=== PATIENT | male | born 1930 | race Caucasian/White ===

== ENCOUNTER 2016-07-31 16:54 | Observation (INO) | payer MEDICARE, OTHER ==
[2016-07-31] MEDS ORDERED: ONDANSETRON HCL/PF 2 MG/ML VIAL IV ONE (17:40)
[2016-07-31 17:45] LABS: Hematocrit 44.9 % (42.0-52.0); Hemoglobin 15.1 gm/dL (13.5-18.0); Mean Corpuscular Hemoglobin 32.6 pg (27-31); Mean Corpuscular Hgb Conc 33.6 g/dl (32-36); Mean Platelet Volume 10.2 fl (6.0-9.5); Neutrophil # 5.7 K/mm3 (1.3-6.0); Neutrophil % 76.6 % (42-75.0); Platelet Count 178 K/mm3 (150-450); Red Blood Count 4.63 M/mm3 (4.7-6.0); Red Cell Distribution Width 13.2 % (11.5-14.0); White Blood Count 7.5 K/mm3 (4.0-10.5)
[2016-07-31] MEDS ORDERED: ONDANSETRON HCL/PF 2 MG/ML VIAL ONE (17:56)
[2016-07-31 17:59] LABS: Albumin * 3.6 gm/dl (3.4-5.0); Anion Gap 12.7 mmol/L (6.8-13.8); BUN/Creatinine Ratio 11.7 (9.0-21.6); Bilirubin, Total 0.7 mg/dL (0.0-1.1); Ca. Corrected For Albumin 8.8 mg/dL (8.4-10.2); Calcium * 8.8 mg/dL (7.9-10.9); Carbon Dioxide 25.6 mmol/L (24-32.6); Potassium 4.3 mmol/L (3.4-4.6); Total Protein 7.6 gm/dL (6.2-8.2)
[2016-07-31] MEDS: NORMAL SALINE 1,000 ML IV PRN ×2 (18:04→22:45)
[2016-07-31] MEDS ORDERED: MORPHINE SULFATE 2 MG/ML DISP.SYRIN IV ONE (18:05)
[2016-07-31] MEDS ORDERED: MORPHINE SULFATE 2 MG/ML DISP.SYRIN ONE (18:07)
[2016-07-31 19:00] LABS: Urine Bilirubin Negative (NEGATIVE); Urine Blood Negative /ul (NEGATIVE); Urine Ketone Negative (NEGATIVE); Urine Nitrite Negative (NEGATIVE); Urine Protein Negative (NEGATIVE); Urine Specific Gravity <=1.005 SP.GR. (1.005-1.030); Urine Urobilinogen Normal (NORMAL); Urine pH 6.5 pH (5.0-7.0)
[2016-07-31 19:12] LABS: Urine Appearance Clear; Urine Bacteria None Seen; Urine Color Yellow; Urine RBC None Seen /hpf (0-5); Urine WBC 0-5 /hpf (0-5)
--- NOTE | 2016-07-31 19:30 | ERNOTE ---
Abdominal HPI - Narrative Date of Service: 07/31/16 - General Chief Complaint: Abdominal Pain Time Seen by Provider: 07/31/16 17:17 Source: patient Exam Limitations: no limitations - Immun/Allergies/Home Medications Immunizatons: IMMUNIZATION HX History of Influenza Vaccine No Hx Pneumococcal Vaccination No Allergies/Adverse Reactions: Allergies aspirin Adverse Reaction (Mild, Verified 07/31/16 17:10) GI UPSET Home Medications: HOME MEDICATIONS Calcium Carbonate [Calcium] 1,500 mg PO BID 10/20/13 [Last Taken Unknown] Gluc 2Kcl/Chondr/Mckinley Hy/Hy AC [Glucosamine & Chondroitin Cap] 1 each PO BID [Last Taken Unknown] Levothyroxine Sodium [Synthroid] 50 mcg PO DAILY 10/20/13 [Last Taken Unknown] Lutein 20 mg PO DAILY 10/20/13 [Last Taken Unknown] [place]-3 Fatty Acids [Fish Oil] 500 mg PO DAILY 10/20/13 [Last Taken Unknown] Tamsulosin HCl [Flomax] 0.4 mg PO Q2D 10/20/13 [Last Taken Unknown] Ascorbic Acid [Vitamin C] 1,000 mg PO DAILY 04/06/15 [Last Taken Unknown] Cholecalciferol (Vitamin D3) [Vitamin D] 1,000 unit PO DAILY 04/06/15 [Last Taken Unknown] Ubidecarenone [Co Q-10] 100 mg PO DAILY 04/10/15 [Last Taken Unknown] Dgl 06/12/15 [Last Taken Unknown] Ana Root 06/12/15 [Last Taken Unknown] Krill Oil 06/12/15 [Last Taken Unknown] Pycnogenol 06/12/15 [Last Taken Unknown] Resveratrol 06/12/15 [Last Taken Unknown] Vitamin B12 06/12/15 [Last Taken Unknown] - History of Present Illness Narrative: Patient presents with abdominal pain. He relates that he has been having pain and distention for the last week but it has been much worse over the last 24 hours. no fever. He relates normal, non-bloody bowel movements but has been vomiting. No fever. No CP or SOB. Has not seen anyone else for this. nothing clearly makes it better or worse. Pain can be severe, moderate now. Timing: intermittent Quality: fullness Activities at Onset: none Modifying Factors - (Improves): Present: other - none Modifying Factors - (Worsens): Present: movement Associated Symptoms: Present: heartburn, nausea, vomiting. Absent: chest pain, diaphoresis, diarrhea-gross blood, diarrhea-mucous, fever/chills, shortness of breath Prior Abdominal Problems: Present: other - multiple intra-abdominal surgeries Prior Treatment: Absent: recently seen Review of Systems - Review of Systems Constitutional: Absent: fever Respiratory: Absent: shortness of breath Cardiology: Absent: chest pain Gastrointestinal/Abdominal: Present: vomiting Genitourinary: Absent: dysuria All Other Systems: All systems neg except as marked - Patient's Past Medical History Patient History - Medical: Cataracts, GERD, Osteoarthritis, Other Patient History - Cancer: No Hx of Cancer Patient History - Surgical Procedures: Colonoscopy, EGD, Other - Social History Living Situations: home Alcohol Use: none Drug Use: none Physical Exam - Physical Exam General Appearance: Present: alert, mild distress, other - mild distress d/t pain Eye Exam: Normal inspection: bilateral, PERRL: bilateral Ears, Nose, Throat: Present: normal ENT inspection Neck: Present: normal inspection Respiratory: Present: no respiratory distress, normal breath sounds, no accessory muscle use, lungs clear Cardiovascular/Chest: Present: regular rate, rhythm, normal peripheral pulses Gastrointestinal/Abdominal: Present: other - decreased bowel sounds. Diffuse tendenress. hypertympany right mid-abdomen. Most tenderness right mid abdomen. no clear peritoneal signs Back Exam: Absent: CVA tenderness (R), CVA tenderness (L) Extremity Exam: Absent: calf tenderness Neurological Exam: Present: other - no acute focal motor deficits Skin Exam: Absent: skin rash ED Progress - Results and Orders Patient's Lab Results:: I have reviewed the patient's lab results. - Vital Signs Patient's Vital Signs:: I have reviewed the patient's vital signs. Vital Signs: Vital Signs 07/31/16 07/31/16 17:02 18:11 Temperature 36.7 C Pulse Rate 67 65 Respiratory 12 18 Rate Blood Pressure 148/76 136/70 O2 Sat by Pulse 95 97 Oximetry - CT/Ultrasound CT/Ultrasound Narrative: I reviewed the radiology interpretation of the CT scan - Progress/Reassessment Chief Complaint: Abdominal Pain Progress:: Unchanged Progress Note-Subjective: 07/31/16 19:28 Patient having intermittent severe abdominal pain, he will scream out at times. This will then get better. This has been recurrent. he does not feel he can go home with this. I spoke to the Hospitalist who will see the patient in the ED and assess him for admission. Departure - Departure Clinical Impression: Abdominal pain Disposition: [facility] Condition: Stable
[2016-07-31] MEDS ORDERED: ONDANSETRON HCL/PF 2 MG/ML VIAL IV PRN (20:04)
[2016-07-31] MEDS ORDERED: HYDROmorphone HCL 1 MG/ML DISP.SYRIN IV PRN (20:08)
--- NOTE | 2016-07-31 20:11 | HP ---
Chief Complaint - Chief Complaint Date of Service: 07/31/16 Time of Service: 20:10 Chief Complaint: "Feels bloated, nausea/vomiting, abdominal pain. ". Source- Pt ; reliable, Pt's daughter Sara, ER provider report. History of Present Illness: Mr. Phillips is a 86-yr-old WM pt of Dr. Elton Morrissey with a PMH of: Loco 's Esophagus, BPH, GERD, Hiatal Hernia, Hypothyroidism & Osteoathritis. Pt states that he begun feeling bloated on Friday07/26/16. He had acid regurgitation and heart burn along with the bloating. He states that he wanted to come to the ER but since he had an upcoming appt on Friday07/30/[address] Morrissey, he decided to wait until then. In the meantime, he decided to treat his symptoms with OTC Antiacid ( Gaviscon). Today, he states that his symptoms got worse. He felt like a " bloated toad" and whenever he ate any food , he would vomit or regurgitate the stomach contents an 1-2 hours later. He also developed abdominal pain. His daughter went to check on him this evening and found him to be in a lot of Abdominal discomfort, and so she chose to bring him to the [facility] ER. During evaluation at the ED, the hematology and electrolytes laboratory studies were unremarkable. The CT of the Abdomen obtained also did not have any acute findings. Pt will be admitted under observation status for supportive cares of abd pain/distention with: IVF hydration, antiemetics, bowel rest, and Pain mgt. - Patient's Past Medical History Patient History - Medical: Cataracts, GERD, Hypothyroidism, Osteoarthritis, Other - Pneumonia, Otoniel's Esophagua, Hiatal Hernia Patient History - Cancer: No Hx of Cancer Patient History - Surgical Procedures: Colonoscopy, EGD, Pacemaker, Other - Samina fundolopian. - Family History Father Family History - Medical: , Alzheimer's Disease Mother Family History - Medical: , No pertinent hx - Social History Living Situations: home Smoking Status: Former smoker Alcohol Use: none Drug Use: none - Immunizations Immunizations Up to Date: Yes Hx Pneumococcal Vaccination: Yes History of Influenza Vaccine: Yes Review Of Systems (GEN) - Review of Systems Generalized/Overall Review: Absent: Chills, Fever, Diaphoresis EENTM: Absent: Eye Pain, Blurred Vision, Double Vision Respiratory: Present: Shortness of Breath. Absent: Cough Cardiac: Absent: Chest Pain, Edema, Palpitations Abdominal: Present: Nausea, Vomiting, Abdominal Pain. Absent: Constipation, Diarrhea, Melena, Bright blood from rectum Genitourinary: Absent: Burning, Itching, Urgency, Hematuria Musculoskeletal: Absent: Joint Pain, Back Pain Neurological: Present: Tremors, Weakness. Absent: Headache, Anxiety, Emotional Problems Skin: Absent: Dryness, Lesions Endocrine: Present: Intolerance to Cold, Intolerance to Heat, Excessive Sweating , Increased Hunger, Increased Thirst Allergies/Adverse Reactions: Allergies Allergy/AdvReac Type Severity Reaction Status Date / Time aspirin AdvReac Mild GI UPSET Verified 07/31/16 17:10 Home Medications: HOME MEDICATIONS Calcium Carbonate [Calcium] 1,500 mg PO BID 10/20/13 [Last Taken Unknown] Gluc 2Kcl/Chondr/Mckinley Hy/Hy AC [Glucosamine & Chondroitin Cap] 1 each PO BID [Last Taken Unknown] Levothyroxine Sodium [Synthroid] 50 mcg PO DAILY 10/20/13 [Last Taken Unknown] Lutein 20 mg PO DAILY 10/20/13 [Last Taken Unknown] Crawley-3 Fatty Acids [Fish Oil] 500 mg PO DAILY 10/20/13 [Last Taken Unknown] Tamsulosin HCl [Flomax] 0.4 mg PO Q2D 10/20/13 [Last Taken Unknown] Ascorbic Acid [Vitamin C] 1,000 mg PO DAILY 04/06/15 [Last Taken Unknown] Cholecalciferol (Vitamin D3) [Vitamin D] 1,000 unit PO DAILY 04/06/15 [Last Taken Unknown] Ubidecarenone [Co Q-10] 100 mg PO DAILY 04/10/15 [Last Taken Unknown] Ana Root 2 dose PO DAILY 06/12/15 [Last Taken Unknown] Vitamin B12 1 tab PO DAILY 06/12/15 [Last Taken Unknown] Exam - Exam Vital Signs: Vital Signs - Last Taken Temp 36.7 C 07/31/16 19:25 Pulse 66 07/31/16 19:25 Resp 18 07/31/16 18:11 BP 124/67 07/31/16 19:25 Pulse Ox 98 07/31/16 19:25 Constitutional: Present: Alert, Oriented x3, Mild distress, Elderly ENT Exam: Present: normal ENT inspection, hearing grossly normal. Absent: nasal congestion, nasal drainage Eye Exam: bilateral eye: normal inspection, PERRL Neck: Present: full range of motion, supple, normal inspection Back Exam: Present: no CVA tenderness Breasts: Present: Exam deferred Respiratory: Present: lungs clear, no accessory muscle use, No wheezing Cardiovascular/Chest: Present: regular rate, rhythm, no chest tenderness, no murmur Abdomen: Present: firm, other - Tympanitic Abdomen., distended /Rectal: Present: Exam deferred Extremity: Present: non-tender, normal inspection, no pedal edema Skin Exam: Present: warm/dry Lymphatic: Present: no adenopathy Neurologic: Present: no motor/sensory deficits, alert, oriented x 3. Absent: dizzy/light-headedness Appearance: Present: appropriate appearance, appropriate insight Eye contact: Present: cooperative, good eye contact, normal speech Thoughts: Present: normal thought pattern, no apparent hallucination Diagnostic Studies: Laboratory Results WBC 7.5 K/mm3 (4.0-10.5) 07/31/16 17:41 RBC 4.63 M/mm3 (4.7-6.0) L 07/31/16 17:41 Hgb 15.1 gm/dL (13.5-18.0) 07/31/16 17:41 Hct 44.9 % (42.0-52.0) 07/31/16 17:41 MCV 97.0 fl (78-100) 07/31/16 17:41 MCH 32.6 pg (27-31) H 07/31/16 17:41 MCHC 33.6 g/dl (32-36) 07/31/16 17:41 RDW 13.2 % (11.5-14.0) 07/31/16 17:41 Plt Count 178 K/mm3 (150-450) 07/31/16 17:41 MPV 10.2 fl (6.0-9.5) H 07/31/16 17:41 Immature Gran % (Auto) 0.10 % (0.001-0.429) 07/31/16 17:41 Immature Gran # (Auto) 0.01 K/mm3 (0.000-0.0310) 07/31/16 17:41 Neutrophils % 76.6 % (42-75.0) H 07/31/16 17:41 Lymphocytes % 12.2 % (20-51) L 07/31/16 17:41 Monocytes % 8.6 % (0.0-9) 07/31/16 17:41 Eosinophils % 2.0 % (0.0-3.0) 07/31/16 17:41 Basophils % 0.5 % (0.0-1.0) 07/31/16 17:41 Nucleated RBC % 0.0 k/mm3 (0-1) 07/31/16 17:41 Neutrophils # 5.7 K/mm3 (1.3-6.0) 07/31/16 17:41 Lymphocytes # 0.9 k/mm3 (1.5-3.5) L 07/31/16 17:41 Monocytes # 0.6 k/mm3 (0.0-1.0) 07/31/16 17:41 Eosinophils # 0.2 k/mm3 (0.0-0.7) 07/31/16 17:41 Absolute Basophils 0.0 k/mm3 (0.0-0.1) 07/31/16 17:41 Sodium 139 mmol/L (132-142) 07/31/16 17:41 Plasma Sodium 139 mmol/L (130-142) 07/31/16 17:41 Potassium 4.3 mmol/L (3.4-4.6) 07/31/16 17:41 Chloride 105 mmol/L (97-106) 07/31/16 17:41 Carbon Dioxide 25.6 mmol/L (24-32.6) 07/31/16 17:41 Anion Gap 12.7 mmol/L (6.8-13.8) 07/31/16 17:41 BUN 14 mg/dL (6-23) 07/31/16 17:41 Creatinine 1.20 mg/dL (0.4-1.4) 07/31/16 17:41 Est GFR (Non-Af Amer) 61 mL/min (60-130) 07/31/16 17:41 BUN/Creatinine Ratio 11.7 (9.0-21.6) 07/31/16 17:41 Random Glucose 110 mg/dL (70-110) 07/31/16 17:41 Lactic Acid, Venous 1.7 mmol/L (0.4-2.0) 07/31/16 17:41 Calcium 8.8 mg/dL (7.9-10.9) 07/31/16 17:41 Calcium Adj for Albumin 8.8 mg/dL (8.4-10.2) 07/31/16 17:41 Total Bilirubin 0.7 mg/dL (0.0-1.1) 07/31/16 17:41 AST 47 U/L (0-48) 07/31/16 17:41 ALT 55 U/L (19-67) 07/31/16 17:41 Alkaline Phosphatase 72 U/L (50-170) 07/31/16 17:41 Total Protein 7.6 gm/dL (6.2-8.2) 07/31/16 17:41 Albumin 3.6 gm/dl (3.4-5.0) 07/31/16 17:41 Lipase 98 U/L (73-393) 07/31/16 17:41 Urine Color Yellow 07/31/16 18:50 Urine Appearance Clear 07/31/16 18:50 Urine pH 6.5 pH (5.0-7.0) 07/31/16 18:50 Ur Specific [place] <=1.005 SP.GR. (1.005-1.030) 07/31/16 18:50 Urine Protein Negative mg/dL (NEGATIVE) 07/31/16 18:50 Urine Glucose (UA) Negative mg/dL (NEGATIVE) 07/31/16 18:50 Urine Ketones Negative mg/dL (NEGATIVE) 07/31/16 18:50 Urine Blood Negative /ul (NEGATIVE) 07/31/16 18:50 Urine Nitrate Negative (NEGATIVE) 07/31/16 18:50 Urine Bilirubin Negative mg/dl (NEGATIVE) 07/31/16 18:50 Urine Urobilinogen Normal EU/dl (NORMAL) 07/31/16 18:50 Ur Leukocyte Esterase Negative /ul (NEGATIVE) 07/31/16 18:50 Urine RBC None seen /hpf (0-5) 07/31/16 18:50 Urine WBC 0-5 /hpf (0-5) 07/31/16 18:50 Ur Epithelial Cells 0-5 /hpf (0-5) 07/31/16 18:50 Urine Bacteria None seen (NONE) 07/31/16 18:50 Urine Culture Comments No culture indicated 07/31/16 18:50 Assessment/Plan - Assessment/Plan (1) Abdominal distention Assessment: The CT of the abdomen showed partially distended stomach, otherwise there were no acute findings. However, the CT was done without oral contrast and therefore evaluation of the bowel may have been limited. Physical examination reveals tympanitic abdomen, without any tenderness. The enlargement of the abdomen is likely a result of gas vs solid or fluid, from swallowed air due to regurgitation/vomiting. Can consider NG tube for bowel decompression, however, without signs of SBO on CT and no vomiting, it might be best to wait and see if the distention will resolves on its own. Will admit for supportive cares, IVF hydration, Antiemetics, Keep NPO & Pain mgt. Alternatively, the CT of the Abdomen can be repeated with contrast if the abd distention does not improve. Consult surgery due to pt's prior history of gastric outlet obstruction with required dilatation. Monitor closely for SBO. Problem: Acute (2) Barretts esophagus Assessment: Will start on PPI for to control the GERD symptoms. Problem: Chronic (3) GERD (gastroesophageal reflux disease) Problem: Chronic
[2016-07-31] MEDS: PANTOPRAZOLE SODIUM 80 MG in NORMAL SALINE 100 ML IV SCH (22:42)
[2016-08-01] MEDS ORDERED: TAMSULOSIN HCL 0.4 MG CAP.SR.24H PO SCH ×3 (01:15→21:00)
[2016-08-01 05:47] LABS: Hematocrit 40.2 % (42.0-52.0); Hemoglobin 13.4 gm/dL (13.5-18.0); Mean Cell Volume 97.6 fl (78-100); Mean Corpuscular Hemoglobin 32.5 pg (27-31); Mean Corpuscular Hgb Conc 33.3 g/dl (32-36); Mean Platelet Volume 10.7 fl (6.0-9.5); Neutrophil # 5.1 K/mm3 (1.3-6.0); Neutrophil % 70.8 % (42-75.0); Platelet Count 150 K/mm3 (150-450); Red Blood Count 4.12 M/mm3 (4.7-6.0); Red Cell Distribution Width 13.4 % (11.5-14.0); White Blood Count 7.1 K/mm3 (4.0-10.5)
[2016-08-01 05:56] LABS: Anion Gap 13.1 mmol/L (6.8-13.8); BUN/Creatinine Ratio 12.1 (9.0-21.6); Calcium * 7.9 mg/dL (7.9-10.9); Carbon Dioxide 23.1 mmol/L (24-32.6); Estimated Creat Clear 43.4; Potassium 4.2 mmol/L (3.4-4.6)
[2016-08-01] MEDS: NORMAL SALINE 1,000 ML IV PRN ×2 (06:52→15:33)
[2016-08-01] MEDS: LEVOTHYROXINE SODIUM 50 MCG TABLET PO SCH (06:55)
--- NOTE | 2016-08-01 08:33 | PN ---
Subjective - Date and Time Seen Date: 08/01/16 Time: 08:24 Subjective Narrative: Feels a little bit better this mornug. He does complain that whenever he eats , he will feel something is stuck in his stomach and he starts regurgitating it and get nauseous and at times vomits. Objective - Review of Systems Generalized/Overall Review: Denies: Chills, Fever EENTM: Reports: No Symptoms Reported Respiratory: Denies: Cough, Shortness of Breath Cardiac: Denies: Chest Pain, Palpitations Abdominal: Reports: Nausea, Vomiting, Abdominal Pain Genitourinary Symptoms: Denies: Urgency, Frequency Musculoskeletal Complaints: Reports: Joint Pain - Vitals Vitals: Last Vital Signs Temp 37 C 08/01/16 07:56 Pulse 66 08/01/16 07:56 Resp 18 08/01/16 07:56 BP 123/69 08/01/16 07:56 Pulse Ox 99 08/01/16 07:56 - Abnormal Lab Findings Abnormal Lab Findings: Abnormal Lab Results 08/01/16 08/01/16 Range/Units 05:07 05:07 RBC 4.12 L (4.7-6.0) M/mm3 Hgb 13.4 L (13.5-18.0) gm/dL Hct 40.2 L (42.0-52.0) % MCH 32.5 H (27-31) pg MPV 10.7 H (6.0-9.5) fl Lymphocytes % 16.7 L (20-51) % Monocytes % 10.0 H (0.0-9) % Lymphocytes # 1.2 L (1.5-3.5) k/mm3 Chloride 110 H (97-106) mmol/L Carbon Dioxide 23.1 L (24-32.6) mmol/L - Exam Constitutional: Present: Alert, Cooperative ENT Exam: Present: hearing grossly normal Neck: Present: supple Breasts: Present: Exam deferred Respiratory: Present: decreased breath sounds, No rales, No wheezing Cardiovascular/Chest: Present: regular rate, rhythm, no JVD, no murmur Abdomen: Present: no rebound tenderness, firm, other - decreased bowel sounds, distended Extremity: Present: no pedal edema, no calf tenderness Assessment/Plan - Problems/Diagnosis (1) Abdominal distention Problem: Acute Narrative: improved (2) Abdominal pain Problem: Acute Qualifiers: Abdominal location: generalized Qualified Code(s): R10.84 - Generalized abdominal pain Narrative: controlled (3) Barretts esophagus Problem: Chronic Narrative: has been refusing PPI (4) GERD (gastroesophageal reflux disease) Problem: Chronic Narrative: has been refusing PPI (5) Nausea & vomiting Problem: Acute Qualifiers: Vomiting type: unspecified Vomiting Intractability: non-intractable Qualified Code(s): R11.2 - Nausea with vomiting, unspecified Narrative: history of Barrets, GERD, Hiatal hernia, Samina- r/o esophageal stricture ? r/o gastric outlet obstruction? will get Dr. Tolbert for possible EGD- diagnostic/ therapeutic.
[2016-08-01] MEDS: CALCIUM CARBONATE/VITAMIN D3 1 TAB TABLET PO SCH ×2 (08:55→20:02)
[2016-08-01] MEDS ORDERED: ASCORBIC ACID 500 MG TABLET PO SCH (09:00)
[2016-08-01] MEDS ORDERED: CYANOCOBALAMIN 1,000 MCG TABLET PO SCH (09:00)
[2016-08-01] MEDS ORDERED: FISH OIL 500 MG PO SCH (09:00)
[2016-08-01] MEDS ORDERED: Co Q-10 100 MG PO SCH (09:00)
[2016-08-01] MEDS ORDERED: CHOLECALCIFEROL 1,000 UNIT CAPSULE PO SCH (09:00)
[2016-08-01] MEDS ORDERED: NORMAL SALINE 1,000 ML IV ONE (19:00)
[2016-08-01] MEDS: PANTOPRAZOLE SODIUM 80 MG in NORMAL SALINE 100 ML IV SCH (19:38)
--- NOTE | 2016-08-01 19:58 | OR ---
Operative Report - Dictated Report Narrative: Operative Report Date of operation: 08/01/2016 Preoperative diagnosis: Gastric outlet obstruction Postoperative diagnosis: Severe esophagitis. Severe gastritis (pathology and CLOtest pending) Operation: EGD with biopsies Surgeon: Dr Tolbert Anesthesia: JOSE MARIA ELLISON CRNA Indications for procedure: The patient is an 86-year-old male who is status post Samina fundoplication with previous gastric operation including pyloroplasty for ulcer disease. He has had a previous EGD here with balloon dilation of the pylorus in April 2015. He is also had an EGD last fall at [facility] (records not available). He has had progressive postprandial abdominal distention and pain with vomiting. Findings: Severe esophagitis with possible Loco's changes. Surgical changes to the stomach compatible with Samina fundoplication and possible pyloroplasty. Enterogastric bile reflux and retained food material indicating gastroparesis. No gastric outlet obstruction. Normal appearing duodenum. Narrative of procedure: The patient was identified preoperatively, and prior to the administration of anesthetic a multidisciplinary timeout was observed With the patient in the recumbent position, a bite-block was placed, intravenous sedation was administered, and the patient's eyes covered with a towel. The flexible fiberoptic gastroscope was advanced into the posterior pharynx which appeared normal. There were a large amount of pooled secretions which were suctioned. The supraglottic larynx appeared normal. The cords appeared normal, moved well, and opposed in the midline. The scope was advanced under direct vision into the proximal esophagus which appeared normal. The proximal one third of the esophagus appeared freely distensible with normal mucosa. The distal two thirds of the esophagus were severely inflamed with friability and possible Loco's changes. There were islands of mucosa. The scope was advanced into the stomach which was insufflated with air. There was some retained solid food material in the proximal stomach in the area of what appeared to be a slipped Samina wrap. There was inflammation of the stomach with enterogastric bile reflux which was carefully suctioned. The outlet of the stomach appeared patent. The scope was advanced into the horizontal portion of the duodenum which appeared normal, specifically the villous architecture appeared well preserved and clear bile was present. The scope was slowly withdrawn through the area of the gastric outlet with confirmation that no active ulcer was present. The scope was withdrawn into the stomach and medical field representative biopsies of gastric mucosa obtained for CLOtest and pathology. The biopsy sites were seen to be hemostatic. The insufflated air was removed, the scope withdrawn into the distal esophagus which was biopsied. The biopsy sites were seen to be hemostatic. The scope was then withdrawn from the patient, and the procedure terminated. The patient tolerated the anesthetic and procedure well without complication and was transferred back to the awake and in stable condition. RECOMMENDATION: The patient may begin a clear liquid diet with ensure supplement. Liquid Carafate PO QID will be added. Strong consideration should be given to discontinuing nonessential and possibly mucosal irritating medications/vitamins. There is an option that he can be maintained on by mouth liquid supplements, with the option for a percutaneous gastrojejunostomy tube to bypass the stomach completely should that not proved sufficient. Reviewed and electronically signed
[2016-08-01] MEDS: SUCRALFATE 1 G/10 ML UDC PO SCH (20:04)
[2016-08-02] MEDS: NORMAL SALINE 1,000 ML IV PRN (00:05)
[2016-08-02] MEDS: LEVOTHYROXINE SODIUM 50 MCG TABLET PO SCH (06:34)
[2016-08-02] MEDS: SUCRALFATE 1 G/10 ML UDC PO SCH (06:34)
--- NOTE | 2016-08-02 08:26 | PN ---
Progess Note - Interim Narrative: 08/02/16 08:23 Dr. Tolbert is going to consult Lani for special liquid diet fore 4-6 weeks. He recommends continuing carafate and PPI. The patient is still hesitant to start PPI. I told him there are other PPI than omeprazole as he seems to think that is waht started all this. Possible discharge today.
[2016-08-02 11:21] VITALS: BP 126/56
--- NOTE | 2016-08-02 11:21 | DS ---
(1) Abdominal distention Problem: Acute (2) Abdominal pain Problem: Resolved Qualifiers: Abdominal location: generalized Qualified Code(s): R10.84 - Generalized abdominal pain (3) Barretts esophagus Problem: Chronic Qualifiers: Loco's esophagus type: without dysplasia Qualified Code(s): K22.70 - Loco's esophagus without dysplasia (4) GERD (gastroesophageal reflux disease) Problem: Chronic Qualifiers: Esophagitis presence: with esophagitis Qualified Code(s): K21.0 - Gastro- esophageal reflux disease with esophagitis (5) Nausea & vomiting Problem: Resolved Qualifiers: Vomiting type: unspecified Vomiting Intractability: non-intractable Qualified Code(s): R11.2 - Nausea with vomiting, unspecified Description of Stay: Shabbir Phillips, is a 86-yr-old WM with a PMH of: Loco's Esophagus, BPH, GERD , Hiatal Hernia, Hypothyroidism & Osteoathritis who was admitted on 07/31/2016 for N/V/abdominal pain. He begun feeling bloated on Friday07/26/16. He had acid regurgitation and heart burn along with the bloating. He states that he wanted to come to the ER but since he had an upcoming appt on Friday07/30/[address] Morrissey, he decided to wait until then. In the meantime, he decided to treat his symptoms with OTC Antiacid ( Gaviscon). On the morning of admission , his symptoms got worse. He felt like a " bloated toad" and whenever he ate any food, he would vomit or regurgitate the stomach contents an 1-2 hours later. He also developed abdominal pain. His daughter went to check on him on the night of admission and found him to be in a lot of abdominal discomfort, and so she chose to bring him to the [facility] ER. During evaluation at the ED, the hematology and electrolytes laboratory studies were unremarkable. The CT of the Abdomen obtained also did not have any acute findings. Pt was admitted and got IVF hydration, antiemetics, bowel rest, and Pain mgt. Dr. Tolbert was consulted for EGD. he saw severe eosphagitis and gastritis with no gastric outlet obstruction. He is being discherged now on liquid diet for 4-6 weeks ,carafate and PPI. Procedures Performed: see notes below List Procedures: EGD with biopsy Discharge Disposition: Home self care Disposition: Home self-care Condition: Fair Discharge Activity: Activity as tolerated Discharge Diet: Other - liquid diet, 6 ensure daily and minimum of 4 cups of other fluid. Additional Patient Instructions (free text): [facility] ANASTASIYA mehta. Please fax face to face, orders, H&P, D/C Summary upon discharge. Follow up with PCP in 4 weeks. Prescriptions (Any new or edited meds): Esomeprazole Magnesium [Nexium] 40 mg PO BID #60 capsule. Complete Home Medications List: Complete Home Medication List: Levothyroxine Sodium [Synthroid] 50 mcg PO DAILY 10/20/13 Tamsulosin HCl [Flomax] 0.4 mg PO Q2D 10/20/13 Esomeprazole Magnesium [Nexium] 40 mg PO BID #60 capsule. 08/02/16 Sucralfate [Carafate Suspension] 1 g PO [facility] 08/02/16
--- NOTE | 2016-08-02 18:59 | CONS ---
HPI - General Date of Service: 08/01/16 - the patient was seen on the morning of 08/01/16, had EGD on 08/01/16, and had f/u visit 8AM 08/02/16 Source: patient, family, RN notes reviewed, old records - History of Present Illness Initial Comments: The patient is known to me from an encounter in April 2015. Timing/Duration: other - He has "always" had reflux issues and is s/p Samina fundoplication and some sort of gastric operation with pyloroplasty for ulcer disease. In April 2015 he had EGD with balloon dilation of severe pyloric stenosis, which improved his symptoms until last Fall. 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 He states he has not felt well since with epigastric pain and bloating. He was started on Omeprazole XR and after 2 doses had severe pain and came to ER. There was concern for obstruction and CT was done which shows grossly dilated stomach but no bowel obstuction. Modifying Factors - (Worsens): Reports: other - eating Modifying Factors - (Improves): Reports: other - vomiting or not eating Associated Symptoms: chest pain, cough, vomiting Allergies/Adverse Reactions: Allergies aspirin Adverse Reaction (Mild, Verified 07/31/16 17:10) GI UPSET Home Medications: Home Medications Medication Instructions Recorded Last Taken Levothyroxine Sodium [Synthroid] 50 mcg PO DAILY 10/20/13 Unknown Tamsulosin HCl [Flomax] 0.4 mg PO Q2D 10/20/13 Unknown - Patient's Past Medical History Patient History - Medical: Cataracts, GERD, Hypothyroidism, Osteoarthritis, Other - Pneumonia, Otoniel's Esophagua, Hiatal Hernia Patient History - Cardiac/Respiratory: No pertinent hx Patient History - Cancer: No Hx of Cancer Patient History - Surgical Procedures: Colonoscopy, EGD, Pacemaker, Other - Samina fundolopian. Patient History - Other: None - Family History Father Family History - Medical: , Alzheimer's Disease Mother Family History - Medical: , No pertinent hx - Social History Living Situations: home Smoking Status: Former smoker Have you smoked in the past 12 months: No Alcohol Use: none Drug Use: none - Immunizations Immunizations Up to Date: Yes Hx Pneumococcal Vaccination: Yes History of Influenza Vaccine: Yes Procedures COLONOSCOPY (10/15/06) DILATION OF DUODENUM, ENDO (04/10/15) ENDOSCOP DILATE PYLORUS (12/17/07) ESOPHAGEAL DILATION (10/27/13) ESOPHAGOGASTRODUODENOSCOPY [EGD] W/CLOSED BIOPSY (10/27/13) LOC EXC BONE LESION NEC (02/24/02) Medications - Medications Current Medications: He is on a large number of vitamins and Ana in addition to his Thyroid and Flomax Review of Systems - Review of Systems Generalized/Overall Review: Present: Weakness EENTM: Present: No Symptoms Reported Respiratory: Present: Cough. Absent: Shortness of Breath Cardiac: Absent: Chest Pain Abdominal: Present: Vomiting, Abdominal Pain, Other - distention Genitourinary: Present: Hesitancy Musculoskeletal: Present: No Symptoms Reported Neurological: Present: No Symptoms Reported Skin: Present: No Symptoms Reported Physical Examination - Exam Vital Signs: Vital Signs - Last Taken Temp 36.6 C 08/02/16 11:20 Pulse 74 08/02/16 11:20 Resp 20 08/02/16 11:20 BP 126/56 08/02/16 11:20 Pulse Ox 98 08/02/16 11:20 O2 Oxygen Delivery Method Room Air Constitutional: Present: Alert, Oriented x3, Cooperative, Mild distress ENT Exam: Present: normal ENT inspection, other - edentulous Neck: Present: normal inspection Respiratory: Present: lungs clear Cardiovascular/Chest: Present: regular rate, rhythm Abdomen: Present: other - Tympanitic but no percussion tenderness. 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 Suspect poor gastric motility and/or outlet compromise. Explained EGD and possible dilation, which which he is familiar. Consent obtained for exam later today with treatment based on findings. ADDENDUM: The EGD showed severe esophagitis and gross changes suggesting Loco's esophagus. Gastropathy. The gastric outlet was open,. Retained solid food suggesting paresis. RECOMMEND: 4 weeks of liquid diet. Stop non-essential supplements/vitamins--- maintaing only Thyroid med, Flomax and PPI with carafate. Have asked Dietary consult for requirements. Would monitor symptoms response and consider interval EGD. Discussed with Dr Morrissey. Problem: Chronic Qualifiers: Esophagitis presence: with esophagitis Qualified Code(s): K21.0 - Gastro- esophageal reflux disease with esophagitis
== END 2016-08-02 13:03 | disposition home or self-care (01) ==
LOC: ER 16:54 → MS 19:59
PROVIDERS: ADMIT Nurse Practitioner; ATTEND Internal Medicine
PROC: 0DB68ZX Excision of Stomach, Via Natural or Artificial Opening Endoscopic, Diagnostic (ICD-10-PCS; 2016-08-01)
PROC: 0DB58ZX Excision of Esophagus, Via Natural or Artificial Opening Endoscopic, Diagnostic (ICD-10-PCS; principal; 2016-08-01 17:45)
DX: K21.0 Gastro-esophageal reflux disease with esophagitis (principal); K22.70 Barrett's esophagus without dysplasia; R11.2 Nausea with vomiting, unspecified
CPT/HCPCS: 36415; 43239; 74177; 80048; 80053; 81001; 83605; 83690; 85025; 87081; 88305; 88313; 96374; 96375; 99284; G0378